=== PATIENT | female | born 1950 | race African-American/Black ===

== ENCOUNTER → 2017-08-20 | Outpatient (CLI) | payer MEDICARE ==
[~2017-08-20] VITALS: Ht 172.7 cm; Wt 105.0 kg
[~2017-08-20] MED LIST: AMLO-511 PO; ASCO500 PO; ASPI-1182 PO; BENA20 PO; BUME1TAB17 PO; CHOL400T4 PO; CHOL50004 PO; GLIM4 PO; HUM100IN SQ; INSLAN SQ; ISOS30TA6 PO; METF500T4 PO; METO-558 PO; METO50 PO; NITR0.4T50 SL; PIOG30TA10 PO; RANI150T7 PO; ROSU20 PO; SIMV-261 PO; SITA1TAB6 PO; UBID100C10 PO; VERA240SR PO
[2017-08-20 12:06] VITALS: BP 123/57
== END | disposition home or self-care (01) ==
LOC: SRCNTR 09:38
PROVIDERS: ATTEND Internal Medicine Cardiovascular Disease
DX: I11.9 Hypertensive heart disease without heart failure (principal); E11.9 Type 2 diabetes mellitus without complications; E06.3 Autoimmune thyroiditis; E66.9 Obesity, unspecified; E04.9 Nontoxic goiter, unspecified; E78.5 Hyperlipidemia, unspecified; I25.10 Atherosclerotic heart disease of native coronary artery without angina pectoris; M17.0 Bilateral primary osteoarthritis of knee; Z79.4 Long term (current) use of insulin; Z79.82 Long term (current) use of aspirin; Z82.49 Family history of ischemic heart disease and other diseases of the circulatory system; Z83.3 Family history of diabetes mellitus; Z98.61 Coronary angioplasty status
CPT/HCPCS: G0463

== ENCOUNTER → 2017-12-14 | Outpatient (CLI) | payer MEDICARE ==
[~2017-12-14] VITALS: Ht 172.7 cm; Wt 111.0 kg
[~2017-12-14] MED LIST changes: -ASCO500 PO; -CHOL400T4 PO; -HUM100IN SQ; -METF500T4 PO; -ROSU20 PO; -VERA240SR PO
[2017-12-14 11:08] VITALS: BP 142/60
== END | disposition home or self-care (01) ==
LOC: SRCNTR 10:56
PROVIDERS: ATTEND Internal Medicine Cardiovascular Disease
DX: I11.9 Hypertensive heart disease without heart failure (principal); E11.9 Type 2 diabetes mellitus without complications; E78.5 Hyperlipidemia, unspecified; M19.90 Unspecified osteoarthritis, unspecified site; E66.9 Obesity, unspecified
CPT/HCPCS: G0463

== ENCOUNTER → 2018-02-24 | Outpatient (CLI) | payer MEDICARE ==
[~2018-02-24] MED LIST changes: -METO50 PO
[2018-02-24 12:41] LABS: BASOPHILS % (AUTO) 1.2 % (0.0-2.0); EOSINOPHILS % (AUTO) 1.5 % (1.0-6.0); HEMATOCRIT 40.1 % (36-46); HEMOGLOBIN 13.2 g/dL (12.0-16.0); LYMPHOCYTES # (AUTO) 3.7 K/uL (1.0-4.8); LYMPHOCYTES % (AUTO) 48.6 % (22.0-44.0); MEAN CORPUSCULAR HEMOGLOBIN 24.1 pg (26.0-34.0); MEAN CORPUSCULAR HGB CONC 32.8 G/dL (31.0-37.0); MEAN CORPUSCULAR VOLUME 74 fL (80-100); MONOCYTES # (AUTO) 0.6 K/uL (0.1-1.0); MONOCYTES % (AUTO) 8.3 % (2.0-9.0); NEUTROPHILS # (AUTO) 3.1 K/uL (1.8-7.7); NEUTROPHILS % (AUTO) 40.4 % (40.0-70.0); PLATELET COUNT (AUTO) 213 K/uL (150-450); RED BLOOD CELL COUNT(AUTO) 5.45 MIL/uL (4.00-5.20)
[2018-02-24 13:15] LABS: HEMOGLOBIN A1C 11.6 % (4.5-6.2)
[2018-02-24 13:25] LABS: ALBUMIN 2.9 g/dL (3.4-5.0); BILIRUBIN,TOTAL 0.4 mg/dL (0.1-1.0); CALCIUM, TOTAL 9.3 mg/dL (8.8-10.5); CHOL/HDL RATIO 4.6 (3.9-5.7); CREATININE 1.09 mg/dL (0.60-1.30); POTASSIUM 3.9 mmol/L (3.5-5.1); THYROID STIMULATING HORMONE 1.38 uIU/mL (0.36-3.74); TOTAL PROTEIN, SERUM 8.2 g/dL (6.4-8.2)
== END | disposition home or self-care (01) ==
LOC: LABPV 12:05
PROVIDERS: ATTEND Internal Medicine Cardiovascular Disease
DX: I10 Essential (primary) hypertension (principal); Z79.899 Other long term (current) drug therapy
CPT/HCPCS: 83036; 84443

== ENCOUNTER → 2018-03-17 | Outpatient (CLI) | payer MEDICARE ==
[~2018-03-17] VITALS: Ht 172.7 cm; Wt 108.0 kg
[2018-03-17 10:41] VITALS: BP 164/78
== END | disposition home or self-care (01) ==
LOC: SRCNTR 10:16
PROVIDERS: ATTEND Internal Medicine Cardiovascular Disease
DX: I11.9 Hypertensive heart disease without heart failure (principal); E78.5 Hyperlipidemia, unspecified; M19.90 Unspecified osteoarthritis, unspecified site; E66.9 Obesity, unspecified
CPT/HCPCS: G0463

== ENCOUNTER 2018-11-29 12:42 | Inpatient (IN) | payer MEDICARE ==
[~2018-11-29] VITALS: Ht 162.6 cm; Wt 112.5 kg
[~2018-11-29 12:42] MED LIST changes: -AMLO-511 PO; +AMLO5TAB9 PO; -BUME1TAB17 PO; +BUME1TAB34 PO
[2018-11-29 12:59] LABS: GLUCOSE,POINT OF CARE 98 MG/DL (70-110)
[2018-11-29] MEDS ORDERED: SODIUM CHLORIDE 0.9% 1,000 ML IV ONE ×2 (13:45→21:30)
[2018-11-29] MEDS ORDERED: KETOROLAC TROMETHAMINE 30 MG/ML VIAL IVP ONE (13:45)
[2018-11-29 14:00] LABS: EOSINOPHILS % (AUTO) 1.1 % (1.0-6.0); HEMATOCRIT 39.5 % (36-46); HEMOGLOBIN 12.5 g/dL (12.0-16.0); LYMPHOCYTES # (AUTO) 3.3 K/uL (1.0-4.8); LYMPHOCYTES % (AUTO) 29.9 % (22.0-44.0); MEAN CORPUSCULAR HEMOGLOBIN 24.6 pg (26.0-34.0); MEAN CORPUSCULAR HGB CONC 31.8 G/dL (31.0-37.0); MEAN CORPUSCULAR VOLUME 77 fL (80-100); MONOCYTES # (AUTO) 0.9 K/uL (0.1-1.0); MONOCYTES % (AUTO) 8.3 % (2.0-9.0); NEUTROPHILS # (AUTO) 6.6 K/uL (1.8-7.7); NEUTROPHILS % (AUTO) 59.7 % (40.0-70.0); PLATELET COUNT (AUTO) 213 K/uL (150-450); RED BLOOD CELL COUNT(AUTO) 5.11 MIL/uL (4.00-5.20); RED CELL DISTRIBUTION WIDTH 15.8 % (11.5-14.5)
[2018-11-29 14:04] LABS: CALCIUM, TOTAL 9.8 mg/dL (8.8-10.5); CREATININE 1.95 mg/dL (0.60-1.30); POTASSIUM 4.4 mmol/L (3.5-5.1)
[2018-11-29 14:10] LABS: BILIRUBIN,TOTAL 0.3 mg/dL (0.1-1.0); TOTAL PROTEIN, SERUM 8.2 g/dL (6.4-8.2)
[2018-11-29 16:34] LABS: APPEARANCE,URINE CLOUDY (CLEAR); BILIRUBIN,URINE NEGATIVE (NEGATIVE); GLUCOSE, URINE (UA) NEGATIVE (NEGATIVE); KETONES,URINE NEGATIVE (NEGATIVE); LEUKOCYTE ESTERASE ,URINE LARGE (NEGATIVE); NITRATE,URINE NEGATIVE (NEGATIVE); OCCULT BLOOD,URINE NEGATIVE (NEGATIVE); PROTEIN,URINE TRACE (NEGATIVE)
[2018-11-29 16:34] LABS: GLUCOSE,POINT OF CARE 69 MG/DL (70-110)
[2018-11-29 16:56] LABS: BACTERIA,URINE Moderate /HPF (None Seen); RBC,URINE None Seen /HPF (0-2); SQUAMOUS EPITHELIAL CELL,UR Moderate /LPF (None Seen)
[2018-11-29] MEDS ORDERED: ONDANSETRON HCL 4 MG/2 ML VIAL IVP PRN ×2 (18:00→21:30)
[2018-11-29] MEDS ORDERED: HYDROCODONE/ACETAMINOPHEN 5-325 MG TABLET PO PRN (18:00)
[2018-11-29] MEDS ORDERED: ACETAMINOPHEN 325 MG TABLET PO PRN ×2 (18:00→21:30)
[2018-11-29] MEDS ORDERED: MORPHINE SULFATE 4 MG/ML SYRINGE IVP PRN (18:00)
[2018-11-29 19:40] VITALS: BP 158/81
[2018-11-29] MEDS ORDERED: DEXTROSE 50%-WATER 25 GM/50 ML SYRINGE IVP PRN (21:30)
[2018-11-29] MEDS ORDERED: BISACODYL 10 MG RECTAL RECTAL SUPPOSITORY PR PRN (21:30)
[2018-11-29] MEDS ORDERED: MAGNESIUM HYDROXIDE SUSPENSION 30 ML UDCUP PO PRN (21:30)
[2018-11-29] MEDS ORDERED: ZOLPIDEM TARTRATE 5 MG TABLET PO PRN (21:30)
[2018-11-29 21:34] LABS: GLUCOMETER DEV NAME(LOC) 4E.2; GLUCOSE,POINT OF CARE 80 MG/DL (70-110)
[2018-11-29] MEDS: CefTRIAXone 1 GM/DEXTROSE 50 ML IV SCH (22:31)
[2018-11-29] MEDS: HEPARIN SODIUM,PORCINE 5,000 UNITS/ML VIAL SQ SCH (22:31)
[2018-11-29 23:55] VITALS: BP 139/61
[2018-11-30] MEDS: MORPHINE SULFATE 2 MG/ML SYRINGE IVP PRN (02:06)
[2018-11-30 05:45] VITALS: BP 138/60
[2018-11-30 06:45] LABS: GLUCOMETER DEV NAME(LOC) 4E.2; GLUCOSE,POINT OF CARE 71 MG/DL (70-110)
[2018-11-30 08:00] VITALS: BP 135/57
[2018-11-30] MEDS: GLIMEPIRIDE 4 MG TABLET PO SCH (08:00)
[2018-11-30] MEDS: HEPARIN SODIUM,PORCINE 5,000 UNITS/ML VIAL SQ SCH ×2 (08:00→15:55)
[2018-11-30] MEDS: PIOGLITAZONE HCL 30 MG TABLET PO SCH (09:00)
[2018-11-30] MEDS ORDERED: DEXTROSE 5%-0.45% SODIUM CHL 1,000 ML IV ONE (09:45)
[2018-11-30 10:14] LABS: GLUCOMETER DEV NAME(LOC) 4E.2; GLUCOSE,POINT OF CARE 56 MG/DL (70-110)
[2018-11-30 10:14] LABS: GLUCOMETER DEV NAME(LOC) 4E.2; GLUCOSE,POINT OF CARE 146 MG/DL (70-110)
[2018-11-30] MEDS: INSULIN LISPRO 100 UNITS/ML SQ PRN ×2 (12:04→17:30)
[2018-11-30] MEDS: UBIDECARENONE 100 MG CAPSULE PO SCH (12:05)
[2018-11-30] MEDS: DOCUSATE SODIUM 100 MG CAPSULE PO SCH ×2 (12:05→20:24)
[2018-11-30 12:06] VITALS: BP 160/56
[2018-11-30] MEDS: SIMVASTATIN 40 MG TABLET PO SCH (12:06)
[2018-11-30] MEDS: PANTOPRAZOLE SODIUM 40 MG DR TABLET PO SCH (12:06)
[2018-11-30] MEDS: ASPIRIN 81 MG EC TABLET PO SCH (12:06)
[2018-11-30] MEDS: AmLODIPine BESYLATE 5 MG TABLET PO SCH (12:06)
[2018-11-30] MEDS: METOPROLOL SUCCINATE 50 MG ER TABLET PO SCH (12:07)
[2018-11-30] MEDS: RANITIDINE HCL 150 MG TABLET PO SCH ×2 (12:07→20:24)
[2018-11-30] MEDS: CHOLECALCIFEROL (VIT D3) 5,000 UNITS CAPSULE PO SCH (12:07)
[2018-11-30] MEDS: ISOSORBIDE MONONITRATE 30 MG ER TABLET PO SCH (12:08)
[2018-11-30 12:20] LABS: GLUCOMETER DEV NAME(LOC) 4E.2; GLUCOSE,POINT OF CARE 103 MG/DL (70-110)
[2018-11-30 15:51] VITALS: BP 145/61
[2018-11-30] MEDS: HYDROCODONE/ACETAMINOPHEN 5-325 MG TABLET PO PRN (17:34)
[2018-11-30 19:34] LABS: GLUCOMETER DEV NAME(LOC) 4E.2; GLUCOSE,POINT OF CARE 128 MG/DL (70-110)
[2018-11-30 20:01] VITALS: BP 122/54
[2018-11-30] MEDS: INSULIN GLARGINE,HUM.REC.ANLOG 100 UNITS/ML SQ SCH (21:00)
[2018-11-30] MEDS: CefTRIAXone 1 GM/DEXTROSE 50 ML IV SCH (21:45)
[2018-12-01] VITALS (7 sets, daily range): BP systolic 136–177; BP diastolic 57–84
[2018-12-01 00:14] LABS: GLUCOMETER DEV NAME(LOC) 4E.2; GLUCOSE,POINT OF CARE 131 MG/DL (70-110)
[2018-12-01] MEDS ORDERED: SODIUM CHLORIDE 0.9% 1,000 ML IV ONE (06:00)
[2018-12-01 06:27] LABS: INR 0.9 (0.9-1.1); PROTHROMBIN TIME 9.9 SEC (9.4-11.6)
[2018-12-01] MEDS ORDERED: MEPERIDINE-PF 25 MG/ML VIAL IVP PRN (06:30)
[2018-12-01] MEDS ORDERED: HYDROmorphone 2 MG/ML SYRINGE IVP PRN (06:30)
[2018-12-01] MEDS ORDERED: FentaNYL CITRATE-PF 100 MCG/2 ML VIAL IVP PRN (06:30)
[2018-12-01] MEDS ORDERED: SODIUM CL IRRIG SOLN BAG 3,000 ML IRRIG ONE (06:37)
[2018-12-01] MEDS ORDERED: IOHEXOL 240 MG/ML 20 ML VIAL ONE (06:37)
[2018-12-01] MEDS: HEPARIN SODIUM,PORCINE 5,000 UNITS/ML VIAL SQ SCH ×4 (08:00→23:53)
[2018-12-01] MEDS: GLIMEPIRIDE 4 MG TABLET PO SCH (08:00)
[2018-12-01 08:54] LABS: GLUCOMETER DEV NAME(LOC) 4E.2; GLUCOSE,POINT OF CARE 197 MG/DL (70-110)
[2018-12-01] MEDS: SIMVASTATIN 40 MG TABLET PO SCH (10:17)
[2018-12-01] MEDS: RANITIDINE HCL 150 MG TABLET PO SCH ×2 (10:17→21:10)
[2018-12-01] MEDS: PIOGLITAZONE HCL 30 MG TABLET PO SCH (10:17)
[2018-12-01] MEDS: UBIDECARENONE 100 MG CAPSULE PO SCH (10:17)
[2018-12-01] MEDS: ISOSORBIDE MONONITRATE 30 MG ER TABLET PO SCH (10:17)
[2018-12-01] MEDS: CHOLECALCIFEROL (VIT D3) 5,000 UNITS CAPSULE PO SCH (10:17)
[2018-12-01] MEDS: DOCUSATE SODIUM 100 MG CAPSULE PO SCH ×2 (10:17→21:10)
[2018-12-01] MEDS: ASPIRIN 81 MG EC TABLET PO SCH (10:17)
[2018-12-01] MEDS: METOPROLOL SUCCINATE 50 MG ER TABLET PO SCH (10:18)
[2018-12-01] MEDS: PANTOPRAZOLE SODIUM 40 MG DR TABLET PO SCH (10:18)
[2018-12-01] MEDS: AmLODIPine BESYLATE 5 MG TABLET PO SCH (10:18)
[2018-12-01] MEDS: OXYGEN THERAPY IH SCH ×2 (10:25→20:00)
[2018-12-01] MEDS: INSULIN LISPRO 100 UNITS/ML SQ PRN ×3 (11:57→21:18)
[2018-12-01] MEDS ORDERED: PROPOFOL 1% 20 ML VIAL IVP ONE (12:00)
[2018-12-01] MEDS ORDERED: DEXAMETHASONE SOD PHOS 4 MG/ML VIAL IVP ONE (12:00)
[2018-12-01] MEDS ORDERED: FentaNYL CITRATE-PF 100 MCG/2 ML VIAL IVP ONE (12:00)
[2018-12-01] MEDS ORDERED: SUCCINYLCHOLINE CHLORIDE 20 MG/ML 10 ML VIAL IVP ONE (12:00)
[2018-12-01] MEDS ORDERED: EPHEDrine SULFATE 50 MG/ML VIAL IM ONE (12:00)
[2018-12-01] MEDS ORDERED: LIDOCAINE/PF 2% 5 ML VIAL INJ ONE (12:00)
[2018-12-01] MEDS ORDERED: MIDAZOLAM HCL 2 MG/2 ML VIAL IVP ONE (12:00)
[2018-12-01] MEDS ORDERED: 0.9% SODIUM CHLORIDE 10 ML VIAL IVP ONE (12:00)
[2018-12-01] MEDS ORDERED: ONDANSETRON HCL 4 MG/2 ML VIAL IVP ONE (12:00)
[2018-12-01 12:55] LABS: GLUCOMETER DEV NAME(LOC) 4E.2; GLUCOSE,POINT OF CARE 261 MG/DL (70-110)
[2018-12-01 12:55] LABS: GLUCOMETER DEV NAME(LOC) 4E.2; GLUCOSE,POINT OF CARE 218 MG/DL (70-110)
[2018-12-01] MEDS: MORPHINE SULFATE 2 MG/ML SYRINGE IVP PRN (16:44)
[2018-12-01 19:24] LABS: GLUCOMETER DEV NAME(LOC) 4E.2; GLUCOSE,POINT OF CARE 293 MG/DL (70-110)
[2018-12-01] MEDS: HYDROCODONE/ACETAMINOPHEN 5-325 MG TABLET PO PRN ×2 (20:35→23:52)
[2018-12-01] MEDS: CefTRIAXone 1 GM/DEXTROSE 50 ML IV SCH (21:10)
[2018-12-01] MEDS: INSULIN GLARGINE,HUM.REC.ANLOG 100 UNITS/ML SQ SCH (21:17)
[2018-12-01] MEDS ORDERED: SODIUM CHLORIDE 0.9% 500 ML IV ONE (21:22)
[2018-12-01 22:00] LABS: GLUCOMETER DEV NAME(LOC) 4E.2; GLUCOSE,POINT OF CARE 322 MG/DL (70-110)
[2018-12-02 04:02] VITALS: BP 139/65
[2018-12-02] MEDS: INSULIN LISPRO 100 UNITS/ML SQ PRN ×4 (05:21→21:55)
[2018-12-02 06:04] LABS: GLUCOMETER DEV NAME(LOC) 4E.2; GLUCOSE,POINT OF CARE 286 MG/DL (70-110)
[2018-12-02 06:22] LABS: BASOPHILS % (AUTO) 0.5 % (0.0-2.0); EOSINOPHILS % (AUTO) 0.1 % (1.0-6.0); HEMATOCRIT 36.1 % (36-46); HEMOGLOBIN 11.6 g/dL (12.0-16.0); LYMPHOCYTES % (AUTO) 24.3 % (22.0-44.0); MEAN CORPUSCULAR HEMOGLOBIN 25.2 pg (26.0-34.0); MEAN CORPUSCULAR HGB CONC 32.2 G/dL (31.0-37.0); MEAN CORPUSCULAR VOLUME 78 fL (80-100); MONOCYTES # (AUTO) 1.2 K/uL (0.1-1.0); MONOCYTES % (AUTO) 9.8 % (2.0-9.0); NEUTROPHILS # (AUTO) 8.1 K/uL (1.8-7.7); NEUTROPHILS % (AUTO) 65.3 % (40.0-70.0); PLATELET COUNT (AUTO) 225 K/uL (150-450); RED BLOOD CELL COUNT(AUTO) 4.62 MIL/uL (4.00-5.20); RED CELL DISTRIBUTION WIDTH 16.1 % (11.5-14.5)
[2018-12-02 07:03] LABS: CALCIUM, TOTAL 9.6 mg/dL (8.8-10.5); CREATININE 1.86 mg/dL (0.60-1.30); POTASSIUM 5.4 mmol/L (3.5-5.1)
[2018-12-02 07:44] VITALS: BP 160/71
[2018-12-02] MEDS: HEPARIN SODIUM,PORCINE 5,000 UNITS/ML VIAL SQ SCH (08:00)
[2018-12-02] MEDS: OXYGEN THERAPY IH SCH (08:00)
[2018-12-02] MEDS: UBIDECARENONE 100 MG CAPSULE PO SCH (09:07)
[2018-12-02] MEDS: PIOGLITAZONE HCL 30 MG TABLET PO SCH (09:07)
[2018-12-02] MEDS: GLIMEPIRIDE 4 MG TABLET PO SCH (09:07)
[2018-12-02] MEDS: RANITIDINE HCL 150 MG TABLET PO SCH ×2 (09:08→20:38)
[2018-12-02] MEDS: AmLODIPine BESYLATE 5 MG TABLET PO SCH (09:08)
[2018-12-02] MEDS: CHOLECALCIFEROL (VIT D3) 5,000 UNITS CAPSULE PO SCH (09:08)
[2018-12-02] MEDS: ISOSORBIDE MONONITRATE 30 MG ER TABLET PO SCH (09:08)
[2018-12-02] MEDS: ASPIRIN 81 MG EC TABLET PO SCH (09:08)
[2018-12-02] MEDS: DOCUSATE SODIUM 100 MG CAPSULE PO SCH ×2 (09:08→20:38)
[2018-12-02] MEDS: METOPROLOL SUCCINATE 50 MG ER TABLET PO SCH (09:08)
[2018-12-02] MEDS: SIMVASTATIN 40 MG TABLET PO SCH (09:08)
[2018-12-02] MEDS: PANTOPRAZOLE SODIUM 40 MG DR TABLET PO SCH (09:09)
[2018-12-02 11:40] VITALS: BP 136/66
[2018-12-02] MEDS ORDERED: CefTRIAXone 1 GM/DEXTROSE 50 ML IV SCH (12:15)
[2018-12-02 15:34] VITALS: BP 111/59
[2018-12-02 19:49] VITALS: BP 129/57
[2018-12-02 20:09] LABS: GLUCOMETER DEV NAME(LOC) 4E.2; GLUCOSE,POINT OF CARE 304 MG/DL (70-110)
[2018-12-02 20:09] LABS: GLUCOMETER DEV NAME(LOC) 4E.2; GLUCOSE,POINT OF CARE 278 MG/DL (70-110)
[2018-12-02] MEDS: CefTRIAXone 1 GM/DEXTROSE 50 ML IV SCH (20:38)
[2018-12-02 23:30] LABS: GLUCOMETER DEV NAME(LOC) 4E.2; GLUCOSE,POINT OF CARE 249 MG/DL (70-110)
[2018-12-02 23:43] VITALS: BP 142/60
[2018-12-03 04:24] VITALS: BP 135/61
[2018-12-03 05:59] LABS: BASOPHILS % (AUTO) 1.2 % (0.0-2.0); EOSINOPHILS % (AUTO) 2.1 % (1.0-6.0); HEMATOCRIT 34.5 % (36-46); HEMOGLOBIN 11.2 g/dL (12.0-16.0); LYMPHOCYTES # (AUTO) 3.9 K/uL (1.0-4.8); LYMPHOCYTES % (AUTO) 37.9 % (22.0-44.0); MEAN CORPUSCULAR HEMOGLOBIN 25.4 pg (26.0-34.0); MEAN CORPUSCULAR HGB CONC 32.4 G/dL (31.0-37.0); MEAN CORPUSCULAR VOLUME 78 fL (80-100); MONOCYTES % (AUTO) 9.8 % (2.0-9.0); NEUTROPHILS # (AUTO) 5.1 K/uL (1.8-7.7); PLATELET COUNT (AUTO) 210 K/uL (150-450); RED BLOOD CELL COUNT(AUTO) 4.41 MIL/uL (4.00-5.20); RED CELL DISTRIBUTION WIDTH 15.5 % (11.5-14.5)
[2018-12-03 06:13] LABS: CALCIUM, TOTAL 9.5 mg/dL (8.8-10.5); CREATININE 1.47 mg/dL (0.60-1.30); POTASSIUM 4.6 mmol/L (3.5-5.1)
[2018-12-03] MEDS: INSULIN LISPRO 100 UNITS/ML SQ PRN ×2 (06:43→11:39)
[2018-12-03 07:43] VITALS: BP 154/77
[2018-12-03 08:00] LABS: GLUCOMETER DEV NAME(LOC) 4E.2; GLUCOSE,POINT OF CARE 250 MG/DL (70-110)
[2018-12-03] MEDS: CHOLECALCIFEROL (VIT D3) 5,000 UNITS CAPSULE PO SCH (08:31)
[2018-12-03] MEDS: UBIDECARENONE 100 MG CAPSULE PO SCH (08:31)
[2018-12-03] MEDS: PIOGLITAZONE HCL 30 MG TABLET PO SCH (08:31)
[2018-12-03] MEDS: ASPIRIN 81 MG EC TABLET PO SCH (08:31)
[2018-12-03] MEDS: ISOSORBIDE MONONITRATE 30 MG ER TABLET PO SCH (08:32)
[2018-12-03] MEDS: METOPROLOL SUCCINATE 50 MG ER TABLET PO SCH (08:32)
[2018-12-03] MEDS: DOCUSATE SODIUM 100 MG CAPSULE PO SCH (08:32)
[2018-12-03] MEDS: GLIMEPIRIDE 4 MG TABLET PO SCH (08:32)
[2018-12-03] MEDS: SIMVASTATIN 40 MG TABLET PO SCH (08:32)
[2018-12-03] MEDS: PANTOPRAZOLE SODIUM 40 MG DR TABLET PO SCH (08:32)
[2018-12-03] MEDS: AmLODIPine BESYLATE 5 MG TABLET PO SCH (08:32)
[2018-12-03] MEDS: RANITIDINE HCL 150 MG TABLET PO SCH (08:32)
[2018-12-03] MEDS ORDERED: INSULIN GLARGINE,HUM.REC.ANLOG 100 UNITS/ML SQ SCH (09:00)
[2018-12-03 11:38] VITALS: BP 147/52
[2018-12-03 11:55] LABS: GLUCOMETER DEV NAME(LOC) 4E.2; GLUCOSE,POINT OF CARE 246 MG/DL (70-110)
== END 2018-12-03 16:07 | disposition home or self-care (01) | DRG 660 ==
LOC: EMS 12:44 → 4E 17:57
PROVIDERS: ADMIT Internal Medicine; ATTEND Internal Medicine
PROC: BT1F1ZZ Fluoroscopy of Left Kidney, Ureter and Bladder using Low Osmolar Contrast (ICD-10-PCS; 2018-12-01)
PROC: 0T778DZ Dilation of Left Ureter with Intraluminal Device, Via Natural or Artificial Opening Endoscopic (ICD-10-PCS; principal; 2018-12-01 07:30)
DX: N13.2 Hydronephrosis with renal and ureteral calculous obstruction (principal); E44.0 Moderate protein-calorie malnutrition; I13.0 Hypertensive heart and chronic kidney disease with heart failure and stage 1 through stage 4 chronic kidney disease, or unspecified chronic kidney disease; Z68.41 Body mass index [BMI] 40.0-44.9, adult; N17.9 Acute kidney failure, unspecified; I50.9 Heart failure, unspecified; E78.5 Hyperlipidemia, unspecified; N13.9 Obstructive and reflux uropathy, unspecified; E66.01 Morbid (severe) obesity due to excess calories; E11.65 Type 2 diabetes mellitus with hyperglycemia; E11.22 Type 2 diabetes mellitus with diabetic chronic kidney disease; E11.649 Type 2 diabetes mellitus with hypoglycemia without coma; E78.00 Pure hypercholesterolemia, unspecified; I25.10 Atherosclerotic heart disease of native coronary artery without angina pectoris; N18.9 Chronic kidney disease, unspecified; Z79.4 Long term (current) use of insulin; Z95.5 Presence of coronary angioplasty implant and graft; N39.0 Urinary tract infection, site not specified
CPT/HCPCS: 74176; 87081; 87086; 93005; 93306; G0378; J0330; J0696; J1100; J1644; J1815; J1885; J2250; J2270; J2405; J2704; J3010; J3490; J7030; J7040; Q9966

== ENCOUNTER → 2019-01-06 | Outpatient (CLI) | payer MEDICARE ==
[~2019-01-06] MED LIST changes: -BENA20 PO; -BUME1TAB34 PO; -SITA1TAB6 PO; -UBID100C10 PO
== END | disposition home or self-care (01) ==
LOC: RADPV 10:57
PROVIDERS: ATTEND Internal Medicine Cardiovascular Disease
DX: I08.8 Other rheumatic multiple valve diseases (principal); I25.10 Atherosclerotic heart disease of native coronary artery without angina pectoris
CPT/HCPCS: 93306

== ENCOUNTER → 2019-02-07 | Outpatient (CLI) | payer MEDICARE ==
[2019-02-07 12:28] LABS: BASOPHILS % (AUTO) 0.6 % (0.0-2.0); EOSINOPHILS % (AUTO) 1.6 % (1.0-6.0); HEMATOCRIT 42.4 % (36-46); HEMOGLOBIN 13.4 g/dL (12.0-16.0); LYMPHOCYTES # (AUTO) 4.2 K/uL (1.0-4.8); LYMPHOCYTES % (AUTO) 48.1 % (22.0-44.0); MEAN CORPUSCULAR HEMOGLOBIN 24.1 pg (26.0-34.0); MEAN CORPUSCULAR HGB CONC 31.6 G/dL (31.0-37.0); MEAN CORPUSCULAR VOLUME 76 fL (80-100); MONOCYTES # (AUTO) 0.8 K/uL (0.1-1.0); NEUTROPHILS # (AUTO) 3.5 K/uL (1.8-7.7); NEUTROPHILS % (AUTO) 40.7 % (40.0-70.0); PLATELET COUNT (AUTO) 235 K/uL (150-450); RED BLOOD CELL COUNT(AUTO) 5.57 MIL/uL (4.00-5.20); RED CELL DISTRIBUTION WIDTH 15.5 % (11.5-14.5)
[2019-02-07 13:00] LABS: ALBUMIN 3.1 g/dL (3.4-5.0); BILIRUBIN,TOTAL 0.4 mg/dL (0.1-1.0); CALCIUM, TOTAL 9.9 mg/dL (8.8-10.5); CREATININE 1.1 mg/dL (0.60-1.30); FREE T4 (FREE THYROXINE) 0.99 ng/dL (0.76-1.46); POTASSIUM 3.7 mmol/L (3.5-5.1); THYROID STIMULATING HORMONE 0.96 uIU/mL (0.36-3.74); TOTAL PROTEIN, SERUM 8.5 g/dL (6.4-8.2)
== END | disposition home or self-care (01) ==
LOC: MSR 11:14
PROVIDERS: ATTEND Hospitalist
DX: K59.00 Constipation, unspecified (principal); E04.9 Nontoxic goiter, unspecified; N17.9 Acute kidney failure, unspecified
CPT/HCPCS: 74018; 83036; 84439; 84443

== ENCOUNTER → 2019-03-17 | Outpatient (CLI) | payer MEDICARE ==
[~2019-03-17] VITALS: Ht 172.7 cm; Wt 104.0 kg
[~2019-03-17] MED LIST changes: +ASCO500 PO; +CHOL125C2 PO; -CHOL50004 PO
[2019-03-17 11:53] VITALS: BP 168/74
[2019-03-17 12:33] LABS: GLUCOMETER DEV NAME(LOC) SHC.; GLUCOSE,POINT OF CARE 222 MG/DL (70-110)
== END | disposition home or self-care (01) ==
LOC: SRCNTR 11:52
PROVIDERS: ATTEND Hospitalist
DX: E78.5 Hyperlipidemia, unspecified (principal); I10 Essential (primary) hypertension; E03.9 Hypothyroidism, unspecified
CPT/HCPCS: 82962; G0463